=== PATIENT | female | born 2000 | race Caucasian/White ===

== ENCOUNTER 2021-08-07 21:03 | Emergency (ER) | payer OTHER, SELFPAY ==
[2021-08-07 21:27] VITALS: BP 124/98; PULSE 98; RESP 16; TEMP 36.9; O2SAT 98; BMI 42.3
[2021-08-07 21:46] LABS: COVID-19 Test Negative (Negative); IDNOW Serial# 9DD0AD1C
[2021-08-07 22:21] LABS: Strep A Nucleic Acid Negative (Negative)
--- NOTE | 2021-08-07 22:49 | ED.URI ---
HPI - URI/Sore Throat General Chief Complaint: Upper Respiratory Symptoms Stated Complaint: Cough/Sore throat Time Seen by Provider: 08/07/21 22:45 Source: patient Mode of arrival: ambulatory Limitations: no limitations History of Present Illness HPI Narrative: 21-year-old female presents with upper respiratory symptoms, cough, sore throat, bilateral ear pain, and nausea for approximately 4 days. Has a history of recurrent ear infections. MD elicited complaint: cough, sore throat and nasal congestion Onset (ago): day(s) (4) Consistency: constant Severity: moderate Pain scale (0-10): 8 Description of mucous: clear Able to tolerate fluids by mouth: Yes Exacerbating factors: swallowing, speaking and changing head position Relieving factors: nothing Associated symptoms: fever, chills, headache, nasal congestion, sore throat, cough and nausea Treatments prior to arrival: acetaminophen, ibuprofen and cold medicine Related Data Previous Rx's Medication Instructions Recorded amoxicillin 875 mg-potassium 1 tab PO Q12H 10 Days #20 tab 08/07/21 clavulanate 125 mg tablet (Augmentin) Allergies Allergy/AdvReac Type Severity Reaction Status Date / Time No Known Allergies Allergy Verified 08/07/21 21:26 [No Known Allergies*] Review of Systems Review of Systems: Constitutional: positive subjective Fever, no Chills, positive fatigue, positive Malaise ENT/Mouth: positive sore throat, positive runny nose, positive bilateral ear pain Eyes: No Discharge Cardiovascular: No Chest Pain, No SOB Respiratory: Positive Cough, No Sputum, No Wheezing, No Smoke Exposure, No Dyspnea Gastrointestinal: Positive Nausea, No Vomiting, No Diarrhea Genitourinary: no irregular bleeding, No Dysuria, No Urinary Frequency, No Hematuria, No Urinary Incontinence, No Urgency, No Flank Pain, Musculoskeletal: positive Myalgia Skin: No rash Neuro: Positive Headache Yes all other systems are reviewed and are negative [facility] Past Medical History Attestation statement: The following information was validated with the patient. Source: old records reviewed Social History Social History Advance Directives: No Physical Exam Vital Signs: Vital Signs: Last Vital Signs Temp 98.5 F 08/07/21 21:27 Pulse 98 08/07/21 21:27 Resp 16 08/07/21 21:27 BP 124/98 H 08/07/21 21:27 Pulse Ox 98 08/07/21 21:27 Body Mass Index 42.3 Appearance: Alert. Oriented X3. Mild distress. Eyes: Pupils equal, round and reactive to light. Sclera nonicteric. ENT: Pharynx erythematous swollen tonsils, Centor scale 3. Bilateral tympanic membranes erythematous and bulging. Neck: Normal inspection. Neck supple. Bilateral posterior and anterior cervical lymphadenopathy. CVS: Normal heart rate and rhythm. Pulses normal. Respiratory: No respiratory distress. Breath sounds normal. Abdomen: Soft and nontender. Skin: Skin warm and dry. Normal skin color. Normal skin turgor. Extremities: Moves all extremities against resistance. Gait well balanced well coordinated. Neuro: No motor deficit. No sensory deficit. Cranials 2 through 12 intact. Course Course Course Narrative: 21-year-old female presents with upper respiratory symptoms. COVID and strep test are negative, physical exam consistent with pharyngitis and bilateral otitis media. Patient does have a history of recurrent ear infections. Vital signs are stable and within normal limits. Patient is afebrile and appears nontoxic. I will give Augmentin p.o.. Patient verbalized understanding of and agrees to plan of care discharge home. MDM - URI/Sore Throat Differential Diagnosis Differential diagnosis: Likely upper respiratory infection, otitis media, sinusitis, viral infection, bronchitis, influenza and pharyngitis Medical Records Attestation: I reviewed the patient's medical records. Lab Data Attestation: I reviewed the patient's lab results. Labs: Lab Results 08/07/21 08/07/21 Range/Units 21:11 22:03 COVID-19 (HEATHER) Negative (Negative) COVID-19 Clin Com See Note S. pyogenes GrpA FAITH Negative (Negative) Discharge Plan Discharge Clinical Impression: Otitis media Qualifiers: Otitis media type: suppurative Chronicity: acute Laterality: bilateral Recurrence: recurrent Spontaneous tympanic membrane rupture: without spontaneous rupture Qualified Code(s): H66.006 - Acute suppurative otitis media without spontaneous rupture of ear drum, recurrent, bilateral Pharyngitis Qualifiers: Pharyngitis/tonsillitis etiology: unspecified etiology Qualified Code(s): J02.9 - Acute pharyngitis, unspecified Patient Disposition: Home, Self-Care Instructions: Pharyngitis (ED), Ear Infection (ED) Additional Instructions: You were evaluated for upper respiratory symptoms. Her COVID test is negative. Your physical exam is consistent with bilateral ear infections and pharyngitis. I prescribed Augmentin twice a day. Please take medication for the next 10 days. Use Tylenol Motrin as needed for pain management. Thank you for choosing this emergency department for evaluation. Please follow-up with primary care physician as needed. Return to the emergency department for any new, concerning, or worsening symptoms. Prescriptions: New amoxicillin-pot clavulanate [Augmentin] 875-125 mg tablet 1 tab PO Q12H 10 Days Qty: 20 RF: 0 Stand Alone Forms: Work/School Release
[2021-08-07] MEDS: Acetaminophen 325 MG TABLET 650 MG PO (23:40)
[2021-08-07] MEDS: Amoxicillin/Potassium Clav 875 MG TABLET PO (23:40)
== END 2021-08-08 00:03 | disposition home or self-care (01) ==
PROVIDERS: Emergency Provider Emergency Medicine; PCP Internal Medicine
DX: H66.006 Acute suppurative otitis media without spontaneous rupture of ear drum, recurrent, bilateral (principal); J02.9 Acute pharyngitis, unspecified; R05.9 Cough, unspecified; R51.9 Headache, unspecified; Z20.822 Contact with and (suspected) exposure to COVID-19; Z79.899 Other long term (current) drug therapy
CPT/HCPCS: 36415; 87635; 87651; 99283